=== PATIENT | male | born 1975 | race Caucasian/White ===

== ENCOUNTER 2021-07-14 20:34 | Emergency (ER) | payer OTHER ==
[2021-07-14 21:49] LABS: HEMOGLOBIN 8.8 gm/dl (14.0-17.5); RED BLOOD COUNT 3.07 M/UL (4.20-5.50); WHITE BLOOD COUNT 9.1 K/UL (4.5-11.0)
[2021-07-14 22:18] LABS: BUN/CREATININE RATIO 15 (0-10)
== END 2021-07-15 00:35 | disposition home or self-care (01) ==
LOC: ER1 20:34
PROVIDERS: Physician Assistant
DX: S22.41XA Multiple fractures of ribs, right side, initial encounter for closed fracture (principal); R55 Syncope and collapse; D64.9 Anemia, unspecified; I10 Essential (primary) hypertension; Z79.82 Long term (current) use of aspirin; Z79.899 Other long term (current) drug therapy; W19.XXXA Unspecified fall, initial encounter
CPT/HCPCS: 70450; 71260; 72125; 80053; 80307; 81001; 82272; 85025; 93005; 99284; Q9967

== ENCOUNTER 2022-02-22 01:59 | Emergency (ER) | payer OTHER ==
[2022-02-22 02:35] LABS: HEMOGLOBIN 12.5 gm/dl (14.0-17.5); RED BLOOD COUNT 5.11 M/UL (4.20-5.50); WHITE BLOOD COUNT 7.8 K/UL (4.5-11.0)
[2022-02-22 03:07] LABS: BUN/CREATININE RATIO 13 (0-10)
== END 2022-02-22 05:42 | disposition home or self-care (01) ==
LOC: ER1 01:59
PROVIDERS: Family Medicine
DX: R07.89 Other chest pain (principal); I10 Essential (primary) hypertension; Z87.891 Personal history of nicotine dependence; Z79.899 Other long term (current) drug therapy
CPT/HCPCS: 71045; 80053; 82550; 82553; 84484; 85025; 93005; 99285